=== PATIENT | male | born 1995 | race African-American/Black ===

== ENCOUNTER 2022-11-05 12:11 | Emergency (ER) | payer BC, SELFPAY ==
--- NOTE | ~2022-11-05 | XR_ITS ---
XR knee LT 3V DATE: 11/05/2022 13:01 INDICATION: Fall. Knee injury, anterior pain. TECHNIQUE: 3 views including crosstable lateral COMPARISON: None FINDINGS: No fracture or dislocation or joint effusion, joint space narrowing, radiopaque intra-artic ular loose body or chondrocalcinosis is detected. No periosteal reaction or bone destruction. IMPRESSION: Negative Reviewed, dictated and finalized at location L. IMPRESSION: Negative
[2022-11-05 12:18] VITALS: BP 112/82; PULSE 76; RESP 18; TEMP 36.4; O2SAT 98
--- NOTE | 2022-11-05 13:18 | ED.LOWEXIN ---
HPI - Extremity Injury (Lower) General Chief Complaint: Extremity Injury, Lower Stated Complaint: left knee pain after fall Time Seen by Provider: 11/05/22 12:28 History of Present Illness HPI Narrative: Patient was pushing a stroller when the wheels locked, and he actually tipped the stroller over as he fell, landing on his left knee, he is able to walk on the knee but it does hurt quite a bit. No focal numbness or weakness. Related Data Allergies Allergy/AdvReac Type Severity Reaction Status Date / Time No Known Allergies Allergy Verified 11/05/22 12:21 Review of Systems Review of Systems: CONST: No fever. HEENT: No head or neck trauma C/V: No chest pain RESP: No cough GI: No nausea or vomiting : No dysuria. M/S: Left knee pain SKIN: No rash. NEURO: [No headache or focal numbness or weakness] PSYCH: [No depression] Exam Narrative: EXAMINATION OF ORGAN SYSTEMS/BODY AREAS: Constitutional: Vital signs per nursing GENERAL:[No acute distress, non-toxic appearing.] HEAD: Normal with no signs of head trauma. EYES: EOMI, conjunctiva normal ENT: Hearing grossly intact LUNGS: Nonlabored breathing. HEART: [Regular rate and rhythm] ABD: [Soft], nondistended EXT: Normal range of motion, slight tenderness to palpation of the left anterior knee without any obvious deformities or laxity SKIN: Slight bruising left knee NEURO: [Alert and oriented x 3. No gross focal sensory or strength deficits.] PSYCH: Normal affect Course Vital Signs Vital signs: Vital Signs Temperature 97.6 F 11/05/22 12:18 Pulse Rate 76 11/05/22 12:18 Respiratory Rate 18 11/05/22 12:18 Blood Pressure 112/82 11/05/22 12:18 Pulse Oximetry 98 11/05/22 12:18 Oxygen Delivery Room Air 11/05/22 12:18 Temperature 97.6 F 11/05/22 12:18 Pulse Rate 76 11/05/22 12:18 Respiratory Rate 18 11/05/22 12:18 Blood Pressure 112/82 11/05/22 12:18 Pulse Oximetry 98 11/05/22 12:18 Oxygen Delivery Room Air 11/05/22 12:18 MDM - Extremity Injury (Lower) MDM Narrative Medical decision making narrative: 27-year-old male presenting after fall with injury to his left knee, neurovascularly intact with normal range of motion to the knee with some mild tenderness, x-ray obtained to rule out fracture, does not show any obvious acute fracture on my independent interpretation. Radiology interpretation no acute abnormality, Karthik wrap applied and he is given follow-up to orthopedics and informed that if his symptoms do not improve with RICE, that he should follow-up as he may need an MRI later. Patient agreeable with this plan. Discharge Plan Discharge Clinical Impression: Knee sprain Patient Disposition: Home, Self-Care Condition: Stable Instructions: Antibiotic Form, Knee Sprain (DC) Additional Instructions: Please follow up with the orthopedist; you can always return for any further issues. Follow-up/Referrals: Raymond Vazquez MD [Physician] - 2 Days [place],MD Loenard [Primary Care Provider] -
== END 2022-11-05 13:49 | disposition home or self-care (01) ==
PROVIDERS: Emergency Provider Emergency Medicine; PCP Internal Medicine
DX: S83.92XA Sprain of unspecified site of left knee, initial encounter (principal); W18.39XA Other fall on same level, initial encounter
CPT/HCPCS: 73562; 99283